=== PATIENT | male | born 1945 | race Caucasian/White ===

== ENCOUNTER → 2019-08-20 09:57 | Outpatient (CLI) | payer MEDICARE, OTHER ==
--- NOTE | ~2019-08-20 | ST ---
PATIENT:MAHI PEREZ MEDICAL RECORD: [id number] SEX: M LOCATION:[facility] ORDER #: ADMISSION DATE: 08/20/19 AGE OF PATIENT: 73 REFERRING PHYSICIAN: INTERPRETING PHYSICIAN: NAVARRO ROLLINS MD DATE OF SERVICE: 08/20/2019 Nuclear Stress Test INDICATIONS: Angina, abnormal ECG, hypertension. Family history of coronary artery disease, hyperlipidemia. He was exercised on standard Lexiscan protocol with 28 mCi of sestamibi injected at peak stress and 8 mCi were used previously for rest images. FINDINGS: Gated SPECT reveals preserved ejection fraction at 63% with mild decreased thickening and brightening throughout the inferior segments. SPECT Imaging: Cardiolite was used as myocardial perfusion agent. There is a mixed perfusion defect inferiorly and apically. This is partially fixed, partially reversible. There is reversibility throughout the entire defect. There is as well reversibility laterally. This includes basal, mid, apical, lateral segments. The amount of myocardium involved between the 2 defects is large. OVERALL IMPRESSION: This is an intermediate risk abnormal nuclear stress test, reversibility inferiorly, apically, and laterally suggestive of multivessel hemodynamically significant coronary artery disease. TRANSINT:[id number] Voice Confirmation ID: [id number] DOCUMENT ID: [id number] NAVARRO ROLLINS MD CC: SAGAR MUÑOZ [id number] DICTATION DATE: 08/23/19 1219 MACHINE III COREMAKER: 08/23/19 2241 DEP CLI 08/20/19 [facility] [address] [place] [address]
== END | disposition home or self-care (01) ==
LOC: D.HCCARDIO 09:57
PROVIDERS: ATTEND Internal Medicine Interventional Cardiology
DX: I20.9 Angina pectoris, unspecified (principal)

== ENCOUNTER 2019-09-07 11:19 | Outpatient (CLI) | payer MEDICARE, OTHER ==
[~2019-09-07] VITALS: Ht 180.3 cm; Wt 107.3 kg
--- NOTE | ~2019-09-07 | HEMODYNAMI ---
PATIENT:MAHI PEREZ MEDICAL RECORD: [id number] : 43 LOCATION:[facility] ADMISSION DATE: 09/07/19 Generatedon:09/07/201913:48 Patient name: MAHI PEREZ Patient #: [id number] : 1945 Date of study: 09/07/2019 Page: Of Hemodynamic Procedure Report Patient Data Patient Demographics Procedure consent was obtained First Name: MAHI Gender: Male Last Name: ANA : 1945 Middle Initial: L Age: 73 year(s) Patient #: [id number] Race: Unknown SSN: [id number] Additional ID: [id number] Contact details Address: [address] [place] [address] State: [place] City: [place] Zip code: [address] Past Medical History Allergies Allergen Reaction Date Comments Reported Other allergy 09/07/2019 ASA, Lisinopril Admission Admission Data Admission Date: 09/07/2019 Admission Time: 11:19 Arrival Date: 09/07/2019 Arrival Time: 0:00 Admit Source: Other Insurance Payor: Medicare, Private health insurance [facility] #: [id number] Height (in.): 71 BSA: 2.27 (m2) Height (cm.): 180.34 BMI: 33.19 (kg/m2) Weight (lbs.): 238 Weight (kg.): 107.95 Procedure Procedure Types Cath Procedure Diagnostic Procedure C LH w/Coronaries Sedation Charges Moderate Sedation up to 15 minutes Procedure Description Procedure Date Procedure Date: 09/07/2019 Procedure Start Time: 13:36 Procedure End Time: 13:46 Procedure Staff Name Function Stoney Garcia MD Performing Physician Malina Plummer RN [employer] Officer Zeinab Marino RT Monitor Darron Hemphill RN Nurse Dilma Contreras RT Scrub Indication Chest pain Procedure Data Cath Procedure Fluoroscopy Diagnostic fluoroscopy Total fluoroscopy Time: 1.3 time: 1.3 min min Diagnostic fluoroscopy Total fluoroscopy dose: 392 dose: 392 mGy mGy Contrast Material Contrast Material Type Amount (ml) Isovue 300 31 Entry Location Entry Primary Successful Side Size Upsize Upsize Entry Closure Griggs ccessful Closure Location (Fr) 1 (Fr) 2 (Fr) Remarks Device Remarks Radial Right 6 Fr Mechanical artery Short Compression Estimated blood loss: 5 ml Diagnostic catheters Device Type Used For End Catheter Placement DIAGNOSTIC [place] 110cm 5 Multi-vessel Fr catheter ([id number]) Angiography Procedure Complications No complications Procedure Medications Medication Administration Route Dosage 0.9% NaCl I.V. 100 ml/hr Oxygen etCO2 Nasal cannula 2 l/min Heparin Flush Bag added to field 2 bags (1000units/500ml NS) Lidocaine 2% added to field 20 Radial Cocktail added to field 1 syringe (Verapamil 2mg/Nitro 400mcg/Heparin 1500units) Fentanyl I.V. 50 mcg Versed I.V. 1 mg Fentanyl I.V. 50 mcg Hemodynamics Rest BSA: 2.27 (m2) O2 Consumption: Estimated: 249.16 (ml/min) O2 Consumption indexed : Estimated:109.76 (ml/min/m) Heart Rate: 56 (bpm) Pressure Samples Time Site Value (mmHg) Purpose Heart Use Rate(bpm) 13:40 LV 135/10,17 Snapshot 70 13:40 AO 113/64(84) Pullback 67 13:40 LV 134/7,12 Pullback 67 Gradients Valve Time Site 1 Site 2 Mean SEP/DFP Peak To Heart Use (mmHg) (sec/min) Peak Rate (mmHg) (bpm) Aortic 13:40 LV AO 15 19 21 67 134/7,12 113/64(84) Calculations Valve P-P Mean Valve Index Valve Source Name Gradient Area Flow (cm2) Aortic 21 15 21 15 Snapshots Pre Cath Intra NCS Post Cath Vital Signs Time Heart Resp SPO2 etCO2 NIBP (mmHg) Rhythm Pain Sedation Rate (ipm) (%) (mmHg) Status Level (bpm) 13:22:52 54 19 97 0 138/82(114) NSR 0 (11) 10(A) , No pain 13:27:08 54 16 96 0 133/71(111) NSR 0 (11) 10(A) , No pain 13:31:24 56 14 95 13.5 116/70(95) NSR 0 (11) 10(A) , No pain 13:40:21 68 11 92 0 119/98(113) NSR 0 (11) 10(A) , No pain 13:44:33 57 7 92 40.5 115/67(87) NSR 0 (11) 10(A) , No pain Medications Time Medication Route Dose Verified Delivered Reason Notes E ffectiveness by by 13:26:25 0.9% NaCl I.V. 100 Darron Darron Per ml/hr Joby Hemphill physician RN RN 13:26:34 Oxygen etCO2 2 l/min Darron Darron for low 02 Nasal Lorigan Lorigan sats cannula RN RN 13:26:44 Heparin Flush added 2 bags Darron Darron used for Bag to Lorigan Lorigan procedure (1000units/500ml field RN RN NS) 13:26:55 Lidocaine 2% added 20ml Darron Darron for local to vial Lorigan Lorigan anesthetic field RN RN 13:27:12 Radial Cocktail added 1 Darron Darron used for (Verapamil to syringe Lorigan Lorigan procedure 2mg/Nitro field RN RN 400mcg/Heparin 1500units) 13:27:35 Fentanyl I.V. 50 mcg Darron Darron for Lorigan Lorigan sedation RN RN 13:35:58 Versed I.V. 1 mg Darron Darron for Lorigan Lorigan sedation RN RN 13:41:21 Fentanyl I.V. 50 mcg Darron Darron for Lorigan Lorigan sedation RN tourism radio presenter Log Time Note 18:40:47 patient states last dose of Eliquis on 09/04/2019 18:40:47 Is patient on blood thinner?Yes 13:04:47 Arrival Date: 09/07/2019 12:00:00 AM 13:05:09 Admit Source: Other 13:05:14 Insurance Payor : Private health insurance, Medicare 13:05:40 Patient Height : 71 inches 13:05:45 Patient Weight : 238 lbs 13:06:30 Indication : Chest pain 13:06:44 ACC Patient presents with Unstable Angina CCS Anginal Class 2--Slight limitation of ordinary activity. 13:06:51 Procedure Status Elective Heart Cath (OP). 13:06:54 Malina Plummer RN sent for patient. Start room use. 13:06:55 Time tracking: Regular hours (M-F 7:00 - 5:00) 13:07:00 Plan of Care:Hemodynamics will remain stable., Cardiac rhythm will remain stable., Comfort level will be maintained., Respiratory function will remain adequate., Patient/ family verbilizes understanding of procedure., Procedure tolerated without complication., Recovers from procedure without complications.. 13:07:06 Patient received from Pre/Post Procedure Room to CCL 2 Alert and oriented. Tansferred to table in Supine position. 13:07:09 Signed procedure consent form obtained from patient. 13:07:09 Warm blankets applied, and chandni hugger turned on for patient comfort. 13:07:24 H&P Date Dictated: 08/14/2019 Within 30 days and on chart.. 13:07:26 Pre-procedure instructions explained to patient. 13:07:29 Family in waiting room. 13:07:31 Patient NPO since Midnight. 13:07:52 Patient allergic to Other allergyASA, Lisinopril 13:08:01 Is the patient allergic to Iodine/contrast media? No. 13:08:03 Was the patient premedicated? Yes 13:09:59 3a) 45-59 Moderately reduced kidney function. 13:10:37 Maximum allowable contrast dose (3.7 X eGFR X 0.75)155 ml. 13:13:43 Stress Test: yes; abnormal multi 13:13:47 Risk of Mortality: .8 13:13:49 Risk of blood transfusion: .1 13:13:53 Risk of LITO: 9.5 13:18:41 Correct patient and procedure confirmed by team. 13:18:42 ECG and BP/O2 sat monitors applied to patient. 13:21:39 Vital chart was started 13:21:40 Baseline sample Acquired. 13:21:44 Rhythm: sinus rhythm 13:21:46 Full Disclosure recording started 13:21:48 Pre-op teaching completed and patient verbalized understanding. 13:21:52 Patient diabetic? No. 13:21:57 Previous problem with sedation/anesthesia? No ? 13:21:59 Snore? Yes 13:23:24 Sleep apnea? No 13:23:25 Deviated septum? No 13:23:26 Opens mouth fully? Yes 13:23:26 Sticks out tongue? Yes 13:25:49 Dentures? Yes in tight 13:25:53 Airway obstruction? No ? 13:26:07 Pre procedure: right dorsailis pedis pulse 2+ Normal; easily identifiable; not easily obliterated 13:26:18 Pre procedure: left dorsailis pedis pulse 2+ Normal; easily identifiable; not easily obliterated 13:26:25 0.9% NaCl 100 ml/hr I.V. was administered by Darron Hemphill RN; Per physician; Verbal order read back and verified. 13:26:27 Modified Elvin's test Radial < 7 seconds 13:26:34 Oxygen 2 l/min etCO2 Nasal cannula was administered by Darron Hemphill RN; for low 02 sats; Verbal order read back and verified. 13:26:37 Patient pain scale 0/10 ?. 13:26:44 Heparin Flush Bag (1000units/500ml NS) 2 bags added to field was administered by Darron Hemphill RN; used for procedure; Verbal order read back and verified. 13:26:49 IV patent on arrival in left forearm with 0.9% NaCl at [facility]. 13:26:52 Lab results completed and on chart. 13:26:55 Lidocaine 2% 20ml vial added to field was administered by Darron Hemphill RN; for local anesthetic; Verbal order read back and verified. 13:27:00 Right Radial & Right Groin area was prepped with chlora-prep and draped in sterile fashion 13:27:02 Alarms reviewed by R. N. 13:27:02 Sharps counted by scrub and verified by R.N. 13:27:03 Physician arrived 13:27:04 --------ALL STOP TIME OUT------ 13:27:05 Final Timeout: patient, procedure, and site verified with staff and physician. All members of the team are in agreement. 13:27:07 Right Radial & Right Groin site verified by team. 13:27:11 Fire Safety Assessment: A--An alcohol-based skin anteseptic being used preoperatively., C--Open oxygen or nitrous oxide is being used., D--An ESU, laser, or fiber-optic light is being used. 13:27:12 Radial Cocktail (Verapamil 2mg/Nitro 400mcg/Heparin 1500units) 1 syringe added to field was administered by Darron Hemphill RN; used for procedure; Verbal order read back and verified. 13:27:15 Physical assessment completed. ASA score P 2 - A patient with mild systemic disease as per Stoney Garcia MD. 13:27:19 Sedation plan: IV Moderate Sedation Medication:Versed, Fentanyl 13:27:35 Fentanyl 50 mcg I.V. was administered by Darron Hemphill RN; for sedation; Verbal order read back and verified. 13:27:52 Use device set Femoral Dx 13:27:54 ACIST Syringe (17477) opened to sterile field. 13:27:54 Bag Decanter (2002S) opened to sterile field. 13:27:55 Medline Cath Pack ([id number]) opened to sterile field. 13:27:58 ACIST Hand Control (32487) opened to sterile field. 13:27:58 ACIST Manifold (56657) opened to sterile field. 13:28:00 Tegaderm 4 x 4 (1626W) opened to sterile field. 13:28:02 EMERALD Guide Wire (376-500) opened to sterile field. 13:35:58 Versed 1 mg I.V. was administered by Darron Hemphill RN; for sedation; Verbal order read back and verified. 13:36:46 Procedure started. 13:36:51 Local anesthetic to right radial artery with Lidocaine 2% by Stoney Garcia MD.INITIAL ACCESS ONLY 13:37:00 A 6 Fr Short sheath was inserted into the Right Radial artery 13:38:45 SHEATH 6FR RAIN ([id number]) opened to sterile field. 13:39:05 A DIAGNOSTIC [place] 110cm 5 Fr catheter (380680) was advanced over the wire and used for Multi-vessel Angiography. 13:39:43 Zero performed for pressure channel P1 13:40:19 LV hemodynamics recorded. 13:40:20 LV gram done using ESPOSITO 13:40:22 Injector settings: Ml/sec: 5, Volume: 15, 13:40:31 EF : 55 % 13:40:41 LCA angiography performed. 13:40:44 Injector settings: Ml/sec: 3, Volume: 6, 13:41:21 Fentanyl 50 mcg I.V. was administered by Darron Hemphill RN; for sedation; Verbal order read back and verified. 13:42:14 RCA angiography performed. 13:42:35 Injector settings: Ml/sec: 3, Volume: 6, 13:42:40 Catheter removed. 13:43:09 ZEPHYR REGULAR TR BAND (356729) opened to sterile field. 13:43:36 Sheath removed intact; hemostasis achieved with Mechanical Compression to the Right Radial artery. 13:43:37 Procedure ended.(Physican Out) 13:43:54 Fluoroscopy time 01.30 minutes. 13:43:58 Flurop Dose total: 392 13:43:58 Fluoroscopy dose: 392 mGy 13:44:04 Dose Area Product 60592 mGy/cm. 13:44:25 Contrast amount:Isovue 300 31ml. 13:44:27 Maximum allowable dose exceeded? No. 13:44:28 Sharps counted by scrub and verified by R.N. 13:44:31 Lamy band inflated with 10cc of air. 13:44:33 Insertion/operative site no bleeding no hematoma. 13:44:36 Post right radial artery:stable 13:44:37 Post Procedure Pulses reassessed and unchanged 13:44:39 Post procedure rhythm: unchanged. 13:44:42 Estimated blood loss: 5 ml 13:44:43 Post procedure instruction explained to patient.Patient verbalizes understanding. 13:44:44 Patient needs reinforcement of post procedure teaching. 13:45:14 Procedure type changed to Cath procedure, Diagnostic procedure, LHC, C w/Coronaries, Sedation Charges, Moderate Sedation up to 15 minutes 13:45:16 Procedure and supply charges have been captured, reviewed, submitted and are correct. 13:45:21 Procedure Complication : No complications 13:45:25 Vital chart was stopped 13:45:29 [facility] Findings: mild to moderate CAD (<70%) 13:45:30 Operative report dictated upon procedure completion. 13:45:31 See physician's report for complete and final results. 13:46:18 Report given to Pre/Post Procedure Room. 13:46:21 Patient transfered to Pre/Post Procedure Room with Stretcher. 13:46:31 Procedure ended. 13:46:31 Full Disclosure recording stopped 13:46:38 End room use (Document Last) 13:47:46 End room use (Document Last) 13:48:09 End room use (Document Last) Device Usage Item Name Manufacture Quantity Catalog Hospital Part Current Minimal Lot# / Number Charge Number Stock Stock Serial# Code ACIST Acist 1 75418 512370 055448 [id number] 20 [employer]on [employer] (42230) Fanitics Inc Bag Microtek 1 804211 45721 639243 5 Decanter Medical Inc. (2001S) Medline Medline 1 [id number] 694604 55684 318357 5 Cath Pack ([id number]) ACIST Hand Acist 1 52936 206991 769336 333767 5 Control Medical (93265) Systems Inc ACIST Acist 1 66863 203025 011046 987741 5 Manifold Medical (70181) Systems Inc Tegaderm 4 3M 1 1626W 491486 781012 870797 5 x 4 (1626W) EMERALD Cardinal 1 502-513 683837 574798 611259 5 Guide Wire Health (614-577) SHEATH 6FR Cardinal 1 1982790 707282 9130605 727098 5 RAIN Health (3233742) DIAGNOSTIC Terumo 1 40-0723 323551 561687 528825 5 [place] 110cm 5 Fr catheter (851190) ZEPHYR Cardinal 1 448985 882440 6835318 639443 5 REGULAR TR Health BAND (357358) Signature Audit Cornell Stage Time Signature Unsigned Intra-Procedure 09/07/2019 Zeinab Marino 1:47:47 PM RT(R) Intra-Procedure 09/07/2019 Darron 1:48:09 PM Joby RN Intra-Procedure 09/07/2019 Stoney Sheffield 1:48:51 PM Nic SIDDIQI Signatures Performing Physician : Signature : Stoney Garcia MD Date : Time : Monitor : Zeinab Marino RT Signature : Date : Time : Nurse : Darron Hemphill Signature : RN Date : Time : [facility] [address] [facility] [place] [address]
[2019-09-07] MEDS ORDERED: NORVASC5 MG PO (11:40)
[2019-09-07] MEDS ORDERED: TOPROL XL25 MG PO (11:40)
[2019-09-07] MEDS ORDERED: CRESTOR5 MG PO (11:40)
[2019-09-07] MEDS ORDERED: COZAAR50 MG PO (11:41)
[2019-09-07] MEDS ORDERED: ZANAFLEX4 MG PO (11:41)
[2019-09-07] MEDS ORDERED: ELIQUIS5 MG PO (11:42)
[2019-09-07 12:00] VITALS: BP 154/78; Ht 180.3 cm; Wt 107.3 kg
[2019-09-07 12:37] LABS: BASOPHILS 0.2 % (0-2); EOSINOPHILS 2.8 % (0-7); HEMATOCRIT 48.6 % (42.0-54.0); HEMOGLOBIN 16.7 g/dL (13.5-17.5); IMMATURE GRANULOCYTES 1.2 % (0-5); MCH 33.3 pg (26.0-34.0); MCHC 34.4 g/dL (31.0-37.0); MONOCYTES 9.9 % (2-11); NEUTROPHILS 68.9 % (40-80); PLATELET COUNT 136 10x3/uL (130-400); RBC 5.01 10x6/uL (4.20-6.10); RDW 13.3 % (11.5-14.5); WBC 9.3 10x3/uL (4.8-10.8)
[2019-09-07 12:52] LABS: ANION GAP 15.6 mmol/L (8-16); CALCIUM 8.8 mg/dL (8.5-10.1); CARBON DIOXIDE 24.6 mmol/L (21.0-32.0); CREATININE - SERUM 1.3 mg/dL (0.6-1.3); POTASSIUM - SERUM 4.2 mmol/L (3.5-5.1)
--- NOTE | 2019-09-07 13:55 | NUR ---
PT RECEIVED VIA STRETCHER FROM [employer]. PT AWAKE BUT DROWSY, PT DENIES PAIN OR DISCOMFORT. IV PATENT INFUSING VIA R ARM PER ORDERS. PT PLACED ON CARDIAC MONITORS AND O2 VIA NC AT 2L. HR NSR RATE 65, BP 125/72, SAT 95, RR 10. ZYPHER BAND AND IMMOBILIZER TO R WRIST, DRESSING CDI NO BLEEDING OR S/S HEMATOMA NOTED. ARM PINK AND WARM, CAP REFILL BRISK. CALL LIGHT IN REACH, AT BEDSIDE. DR JURADO WAS IN AND SPOKE WITH REGARDING PLAN OF CARE AND PROCEDURE RESULTS.
--- NOTE | 2019-09-07 14:15 | NUR ---
PT RESTING COMFORTABLY. Z BAND AND IMMOBILIZER IN PLACE, DRESSING CDI NO BLEEDING OR S/S HEMATOMA NOTED. VSS. CALL LIGHT IN REACH, AT BEDSIDE
--- NOTE | 2019-09-07 15:00 | NUR ---
4CC AIR REMOVED FROM Z BAND. NO BLEEDING OR S/S HEMATOMA NOTED. CAP REFILL BRISK. HR 56, BP 116/58, RR 12. PT DENIES PAIN OR NEEDS AT THIS TIME. AT BEDSIDE, CALL LIGHT IN REACH
--- NOTE | 2019-09-07 15:35 | NUR ---
4 ADD'L CC AIR REMOVED FROM Z BAND, NO BLEEDING OR S/S HEMATOMA NOTED. VSS. CAP REFILL BRISK. ARM PINK AND WARM. PT DENIES PAIN OR NEEDS.
--- NOTE | 2019-09-07 15:45 | NUR ---
DISCHARGE INSTRUCTIONS REVIEWED W PT AND , BOTH VERBALIZED UNDERSTANDING. IV REMOVED W CATH INTACT. MONITORS REMOVED AND PT UP TO DRESS FOR DISCHARGE
--- NOTE | 2019-09-07 15:51 | NUR ---
REMAINING AIR AND Z BAND REMOVED. NO BLEEDING OR S/S HEMATOMA NOTED. 2X2 AND TEGADERM DRESSING APPLIED. PT AMBULATED TO BR, VOIDING W/O DIFFICULITY. 1555 PT DISCHARGED VIA WC TO WAITING IN PRIVATE VEHICLE. PT HAD ALL BELONGINGS AND DISCHARGE PAPERWORK.
--- NOTE | 2019-09-09 09:09 | OP ---
PATIENT NAME: MAHI PEREZ MEDICAL RECORD: [id number] :43 LOCATION:D.[facility] ADMISSION DATE: SURGEON: JAMAAL AQUINO MD DATE OF OPERATION: 09/07/2019 PROCEDURE: Left heart catheterization, selective coronary angiography, right radial approach. CATHETERS: Radial sheath, Warren catheter. The procedure was well tolerated. The patient was returned to anne. Sheath was removed. TR band was placement. FINDINGS: Left ventriculography in 30-degree ESPOSITO view: Normal wall motion and normal systolic function. CORONARY ANATOMY: LEFT MAIN: Left main is free of disease. LAD: Free of disease in the diagonal system. CIRCUMFLEX: Free of disease in the marginal system. RIGHT CORONARY ARTERY: Dominant artery, gives rise to PDA, free of disease. IMPRESSION: Normal LV systolic function, normal coronary anatomy. TRANSINT:[id number] Voice Confirmation ID: [id number] DOCUMENT ID: [id number] JAMAAL AQUINO MD at 0909 CC: [id number] DICTATION DATE: 09/07/19 1350 ORTHOPEDICS NURSE: 09/07/19 1743 DEP CLI 09/07/19 [id number] [place] [address]
== END 2019-09-07 15:55 | disposition home or self-care (01) ==
LOC: D.CATH 11:19
PROVIDERS: ATTEND Internal Medicine Interventional Cardiology
DX: R94.39 Abnormal result of other cardiovascular function study (principal); I48.20 Chronic atrial fibrillation, unspecified; I25.119 Atherosclerotic heart disease of native coronary artery with unspecified angina pectoris; I10 Essential (primary) hypertension; E78.5 Hyperlipidemia, unspecified